=== PATIENT | male | born 1965 ===

== ENCOUNTER 2022-07-03 08:06 | Outpatient (CLI) | payer OTHER ==
[2022-07-03] MEDS ORDERED: Iopamidol 300 61% 100 ML VIAL FS ONE (11:21)
== END 2022-07-03 08:07 | disposition home or self-care (01) ==
LOC: CSHCT 08:06
PROVIDERS: ATTEND Physician Assistant Medical
DX: R10.11 Right upper quadrant pain (principal); R91.1 Solitary pulmonary nodule
CPT/HCPCS: 74160